=== PATIENT | male | born 1980 | race Caucasian/White ===

== ENCOUNTER 2018-07-17 13:20 | Emergency (ER) | payer SELFPAY ==
[2018-07-17 13:32] VITALS: BP 124/74
[2018-07-17] MEDS ORDERED: LIDOCAINE 2% URO-JET 5 ML KIT MM ONE (14:24)
[2018-07-17] MEDS ORDERED: GABAPENTIN 300 MG CAPSULE PO ONE (14:24)
--- NOTE | 2018-07-17 14:27 | ER Document Report ---
ED Headache - General Chief Complaint: Headache Stated Complaint: TOOTH PAIN Time Seen by Provider: 07/17/18 14:22 TRAVEL OUTSIDE OF THE [place] IN LAST 30 DAYS: No - HPI Patient complains to provider of: Headache Notes: Patient coming in for evaluation of headache. Patient also is complaining of dental pain. Patient states she was eating a sandwich when he cracked front tooth and back to. Patient does have diffuse dental disease states he is currently here in [place] waiting to go back to [place]. Patient states he was on Neurontin for his headache 600 mg nightly however is ran out recently and cannot get his medications transferred to the [facility]. Patient otherwise denies any changes in his headache symptoms. Denies any fever chills nausea vomiting diarrhea denies any trauma. Patient was counseled upon my evaluation. - Related Data Allergies/Adverse Reactions: erythromycin base Allergy (Verified 07/17/18 13:22) latex Allergy (Verified 07/17/18 13:22) Penicillins Allergy (Verified 07/17/18 13:22) sulfamethoxazole [From Bactrim] Allergy (Verified 07/17/18 13:22) trimethoprim [From Bactrim] Allergy (Verified 07/17/18 13:22) Past Medical History - Social History Smoking Status: Current Every Day Smoker Chew tobacco use (# tins/day): No Frequency of alcohol use: None Drug Abuse: None Family History: Reviewed & Not Pertinent Patient has suicidal ideation: No Patient has homicidal ideation: No - Past Medical History Cardiac Medical History: Reports: Hx Hypertension Neurological Medical History: Reports: Hx Migraine Renal/ Medical History: Denies: Hx Peritoneal Dialysis Psychiatric Medical History: Reports: Hx Depression Review of Systems - Review of Systems Constitutional: No symptoms reported EENT: Other - Dental disease Cardiovascular: No symptoms reported Respiratory: No symptoms reported Gastrointestinal: No symptoms reported Genitourinary: No symptoms reported Male Genitourinary: No symptoms reported Musculoskeletal: No symptoms reported Skin: No symptoms reported Hematologic/Lymphatic: No symptoms reported Neurological/Psychological: Headaches -: Yes All other systems reviewed and negative Physical Exam - Vital signs Vitals: Temp Pulse Resp BP Pulse Ox 98.2 F 105 H 18 124/74 96 07/17/18 13:31 07/17/18 13:31 07/17/18 13:31 07/17/18 13:31 07/17/18 13:31 Interpretation: Normal - General General appearance: Appears well, Alert - HEENT Head: Normocephalic - Told the, Atraumatic Eyes: Normal Conjunctiva: Normal Cornea: Normal Pupils: PERRL Notes: Patient with diffuse dental disease throughout the oral cavity. Patient with multiple dental caries. There is no signs of gingival cellulitis or abscess at this time multiple dental fractures of various stages - Respiratory Respiratory status: No respiratory distress Chest status: Nontender Breath sounds: Normal Chest palpation: Normal - Cardiovascular Rhythm: Regular Heart sounds: Normal auscultation Murmur: No - Abdominal Inspection: Normal Distension: No distension Bowel sounds: Normal Tenderness: Nontender Organomegaly: No organomegaly - Back Back: Normal, Nontender - Extremities General upper extremity: Normal inspection, Nontender, Normal color, Normal ROM, Normal temperature General lower extremity: Normal inspection, Nontender, Normal color, Normal ROM, Normal temperature, Normal weight bearing. No: Tejas's sign - Neurological Neuro grossly intact: Yes Cognition: Normal Orientation: AAOx4 [place] Coma Scale Eye Opening: Spontaneous [place] Coma Scale Verbal: Oriented [place] Coma Scale Motor: Obeys Commands [place] Coma Scale Total: 15 Speech: Normal Motor strength normal: LUE, RUE, LLE, RLE Sensory: Normal - Psychological Associated symptoms: Normal affect, Normal mood - Skin Skin Temperature: Warm Skin Moisture: Dry Skin Color: Normal Course - Re-evaluation Re-evalutation: 07/17/18 15:32 We will start the patient back on his Neurontin. Offered ketorolac injection however patient declined at this time. Patient agrees with treatment with viscous lidocaine will provide this in the form of Urojet. Patient will be started on clindamycin due to his diffuse dental disease highly encouraged patient to start looking for a dentist. - Vital Signs Vital signs: Temp Pulse Resp BP Pulse Ox 98.2 F 105 H 18 124/74 96 07/17/18 13:31 07/17/18 13:31 07/17/18 13:31 07/17/18 13:31 07/17/18 13:31 Discharge - Discharge Clinical Impression: Chronic headache, Pain, dental, diffuse dental disease Condition: Good Disposition: HOME, SELF-CARE Instructions: Clindamycin ([facility]), Dentist, Dental Infection or Abscess ([facility]), Headache ([facility]) Additional Instructions: Your evaluation shows diffuse dental disease are highly recommend following up with a dentist. We will start you back on your Neurontin for your headaches. Please use the lidocaine gel to apply to the teeth to help out with pain control. Prescriptions: Gabapentin [Neurontin 300 mg Capsule] 600 mg PO QHS #30 cap Clindamycin HCl [Cleocin 150 mg Capsule] 150 mg PO Q6 #40 capsule Forms: Return to Work
== END 2018-07-17 14:28 | disposition home or self-care (01) ==
LOC: ER 13:20
DX: R51 Headache (principal); K08.89 Other specified disorders of teeth and supporting structures; I10 Essential (primary) hypertension
CPT/HCPCS: 99283; J3490